=== PATIENT | male | born 1935 | race Native Hawaiian/Other Pacific Islander ===

== ENCOUNTER 2022-03-07 13:19 | Inpatient (IN) ==
[2022-03-07] MEDS ORDERED: ONDANSETRON 4 MG/2 ML VIAL IV PRN (17:45)
[2022-03-07] MEDS ORDERED: ACETAMINOPHEN 325 MG TABLET PO PRN (17:45)
[2022-03-07] MEDS ORDERED: hydrALAZINE 20 MG/1 ML VIAL IV PRN (17:45)
[2022-03-07] MEDS ORDERED: INSULIN REGULAR 10 UNIT, CALCIUM GLUCONATE 1,000 MG in DEXTROSE 10% 250 ML IV ONE (17:57)
[2022-03-07] MEDS ORDERED: SODIUM BICARB INJ 100 MEQ in STERILE WATER INJ 1,000 ML IV SCH (19:00)
[2022-03-07 19:32] LABS: Hepatitis B Core IgM Quant < 0.05 Index; Hepatitis B Surface Ag Quant < 0.10 Index; Hepatitis B Surface Ag Result Non-Reactive (NonReactive); Hepatitis C Virus Ab Quant 0.02 Index; Hepatitis C Virus Ab Result Non-Reactive (NonReactive)
[2022-03-07] MEDS ORDERED: LORazepam 2 MG/1 ML VIAL ONE (21:35)
[2022-03-07] MEDS ORDERED: LORazepam 2 MG/1 ML VIAL IV PRN (21:59)
[2022-03-07] MEDS: SODIUM ZIRCONIUM CYCLOSILICATE 10 GM PACK PO SCH (22:01)
[2022-03-07 22:16] LABS: Arterial Base Excess iSTAT -9 MMOL/L (-2.5-2.5); Arterial Bicarbonate iSTAT 16.5 MMOL/L (20-26); Arterial O2 Saturation iSTAT 94 % (95-100); Arterial PCO2 iSTAT 35 MM HG (35-48); Arterial PO2 iSTAT 79 MM HG (80-95); Arterial Total CO2 iSTAT 18 MMO/L (23-27); Arterial pH iSTAT 7.276 (7.35-7.45)
[2022-03-07 22:25] LABS: Basophils % 0.5 % (0.0-0.8); Eosinophils % 0.2 % (0.00-10.9); Hematocrit 24.6 VOL% (42.0-52.0); Hemoglobin 8.2 GM/DL (14.0-18.0); Immature Granulocytes % 0.5 %; Immature Granulocytes Absolute 0.02 #; Lymphocytes % 24.2 % (21.2-54.2); Mean Corpuscular HGB Conc 33.3 GM/DL (32-36); Mean Corpuscular Volume 96.5 FL (87-102); Mean Platelet Volume 9.2 FL (9.6-12.0); Monocytes # 0.3 10*3/uL (0.11-0.8); Neutrophils % 68.6 % (38.7-73.9); Platelet Count 156 T/CUMM (130-400); Red Blood Count 2.55 MC/CUMM (3.8-5.5); Red Cell Distribution Width 14.5 % (9.3-17.3); White Blood Count 4.3 T/CUMM (4-12)
[2022-03-07 22:35] LABS: INR 1.1; PT Patient Result 12.3 SECS (10.1-12.1)
[2022-03-07 22:44] LABS: Calcium 8.8 MG/DL (8.5-10.1); Potassium 4.8 MMOL/L (3.5-5.1)
[2022-03-07 22:47] LABS: Alanine Aminotransferase 23 U/L (16-61); Albumin 2.4 G/DL (3.4-5.0); Alkaline Phosphatase 69 U/L (45-117); Aspartate Amino Transferase 10 U/L (0-37); Bilirubin,Total < 0.39 MG/DL (0.20-1.00); Blood Urea Nitrogen 134 MG/DL (7-18); Calcium 8.6 MG/DL (8.5-10.1); Carbon Dioxide 17 MMOL/L (21-32); Chloride 113 MMOL/L (98-107); Osmolality,Calculated 325.8 MOS/KG (273-304); Potassium 4.9 MMOL/L (3.5-5.1); Sodium 144 MMOL/L (136-145)
[2022-03-07 22:50] LABS: Glucose 38 MG/DL (74-106)
[2022-03-07] MEDS ORDERED: DEXTROSE 10% 250 ML BAG IV PRN (22:57)
[2022-03-08] MEDS ORDERED: SODIUM BICARB INJ 100 MEQ in DEXTROSE 5% 1,000 ML IV SCH (01:00)
[2022-03-08 01:10] LABS: Basophils % 0.2 % (0.0-0.8); Eosinophils % 0.2 % (0.00-10.9); Hematocrit 23.4 VOL% (42.0-52.0); Hemoglobin 7.9 GM/DL (14.0-18.0); Immature Granulocytes % 0.5 %; Immature Granulocytes Absolute 0.03 #; Lymphocytes # 0.4 10*3/uL (1.4-4.0); Lymphocytes % 6.8 % (21.2-54.2); Mean Corpuscular HGB Conc 33.8 GM/DL (32-36); Mean Corpuscular Volume 96.3 FL (87-102); Mean Platelet Volume 9.2 FL (9.6-12.0); Monocytes # 0.2 10*3/uL (0.11-0.8); Monocytes % 4.1 % (1.7-12.7); Neutrophils % 88.2 % (38.7-73.9); Platelet Count 146 T/CUMM (130-400); Red Blood Count 2.43 MC/CUMM (3.8-5.5); Red Cell Distribution Width 14.4 % (9.3-17.3); White Blood Count 5.6 T/CUMM (4-12)
[2022-03-08] MEDS ORDERED: GLUCAGON 1 MG VIAL IM PRN (01:13)
[2022-03-08 01:31] LABS: % Iron Saturation 91.9 % (18-50); Ferritin 1286.8 ng/mL (26-388)
[2022-03-08 01:37] LABS: Alanine Aminotransferase 21 U/L (16-61); Albumin 2.5 G/DL (3.4-5.0); Alkaline Phosphatase 63 U/L (45-117); Aspartate Amino Transferase 11 U/L (0-37); Bilirubin,Total < 0.39 MG/DL (0.20-1.00); Blood Urea Nitrogen 123 MG/DL (7-18); Calcium 8.6 MG/DL (8.5-10.1); Carbon Dioxide 17 MMOL/L (21-32); Chloride 112 MMOL/L (98-107); Cholesterol 99 MG/DL (50-200); Glucose 90 MG/DL (74-106); HDL Cholesterol 58 MG/DL (40-60); Osmolality,Calculated 319.3 MOS/KG (273-304); Potassium 5.5 MMOL/L (3.5-5.1); Risk Ratio 1.71; Sodium 141 MMOL/L (136-145); Triglycerides 18 MG/DL (2-150); VLDL Cholesterol 3.6 MG/DL
[2022-03-08 02:03] LABS: Folate 11.17 NG/ML (5.38-24.0); Vitamin B12 414 PG/ML (211-911)
[2022-03-08 02:08] LABS: Sedimentation Rate-Westergren 78 MM/HR (0-20)
[2022-03-08] MEDS ORDERED: INSULIN REGULAR 10 UNIT, CALCIUM GLUCONATE 1,000 MG in DEXTROSE 10% 250 ML IV ONE (03:00)
[2022-03-08 05:29] LABS: RBC,Urine 79 /HPF (0-4)
[2022-03-08 05:38] LABS: Bilirubin,Urine Negative (Negative); Blood, Urine Large mg/dL (Negative); Glucose,Urine (UA) Negative (Negative); Ketones,Urine Negative (Negative); Nitrite,Urine Negative (Negative); Protein,Urine 30 mg/dL (Negative); Urine Appearance Clear (Clear); Urine Color Yellow (Yellow); Urine Specific Gravity 1.015 (1.001-1.035); Urine Urobilinogen 0.2 eU/dL (<2.0)
[2022-03-08] MEDS: SODIUM ZIRCONIUM CYCLOSILICATE 10 GM PACK PO SCH ×3 (09:06→20:36)
[2022-03-08] MEDS: SODIUM BICARB INJ 50 MEQ in SODIUM CHLORIDE 0.45% 1,000 ML IV SCH ×2 (09:46→18:43)
[2022-03-08 10:30] LABS: Calcium 9.2 MG/DL (8.5-10.1); Osmolality,Calculated 318.8 MOS/KG (273-304); Potassium 5.1 MMOL/L (3.5-5.1)
[2022-03-08] MEDS: levETIRAcetam 500 MG TABLET PO SCH ×2 (11:41→20:36)
[2022-03-09] MEDS: SODIUM BICARB INJ 50 MEQ in SODIUM CHLORIDE 0.45% 1,000 ML IV SCH ×3 (01:21→17:55)
[2022-03-09 06:00] LABS: Basophils % 0.3 % (0.0-0.8); Eosinophils % 0.4 % (0.00-10.9); Hematocrit 27.7 VOL% (42.0-52.0); Hemoglobin 9.5 GM/DL (14.0-18.0); Immature Granulocytes % 0.1 %; Immature Granulocytes Absolute 0.01 #; Lymphocytes % 15.4 % (21.2-54.2); Mean Corpuscular HGB Conc 34.3 GM/DL (32-36); Mean Corpuscular Volume 95.8 FL (87-102); Mean Platelet Volume 9.7 FL (9.6-12.0); Monocytes # 0.4 10*3/uL (0.11-0.8); Monocytes % 6.3 % (1.7-12.7); Neutrophils % 77.5 % (38.7-73.9); Platelet Count 166 T/CUMM (130-400); Red Blood Count 2.89 MC/CUMM (3.8-5.5); Red Cell Distribution Width 14.6 % (9.3-17.3); White Blood Count 6.7 T/CUMM (4-12)
[2022-03-09 06:27] LABS: Alanine Aminotransferase 25 U/L (16-61); Albumin 2.7 G/DL (3.4-5.0); Alkaline Phosphatase 86 U/L (45-117); Aspartate Amino Transferase 16 U/L (0-37); Bilirubin,Total < 0.39 MG/DL (0.20-1.00); Blood Urea Nitrogen 68 MG/DL (7-18); Calcium 8.9 MG/DL (8.5-10.1); Carbon Dioxide 21 MMOL/L (21-32); Chloride 114 MMOL/L (98-107); Glucose 104 MG/DL (74-106); Osmolality,Calculated 302.1 MOS/KG (273-304); Potassium 4.8 MMOL/L (3.5-5.1); Sodium 142 MMOL/L (136-145); Total Protein 6.9 G/DL (6.4-8.2)
[2022-03-09] MEDS: SODIUM ZIRCONIUM CYCLOSILICATE 10 GM PACK PO SCH ×2 (08:35→14:45)
[2022-03-09] MEDS: levETIRAcetam 500 MG TABLET PO SCH ×2 (09:53→20:48)
[2022-03-09] MEDS: amLODIPine 10 MG TABLET PO SCH (09:53)
[2022-03-09] MEDS ORDERED: LORazepam 2 MG/1 ML VIAL IV ONE (13:18)
[2022-03-09] MEDS ORDERED: ZIPRASIDONE 20 MG/1 ML VIAL IM ONE (14:29)
[2022-03-09] MEDS ORDERED: OLANZapine 10 MG VIAL IM ONE (21:15)
[2022-03-10] MEDS: SODIUM BICARB INJ 50 MEQ in SODIUM CHLORIDE 0.45% 1,000 ML IV SCH ×3 (03:40→22:54)
[2022-03-10 06:00] LABS: Basophils % 0.4 % (0.0-0.8); Eosinophils % 0.4 % (0.00-10.9); Hematocrit 31.4 VOL% (42.0-52.0); Hemoglobin 10.1 GM/DL (14.0-18.0); Immature Granulocytes % 0.4 %; Immature Granulocytes Absolute 0.02 #; Lymphocytes % 18.9 % (21.2-54.2); Mean Corpuscular HGB Conc 32.2 GM/DL (32-36); Mean Corpuscular Volume 99.7 FL (87-102); Mean Platelet Volume 9.6 FL (9.6-12.0); Monocytes # 0.5 10*3/uL (0.11-0.8); Monocytes % 8.5 % (1.7-12.7); Neutrophils % 71.4 % (38.7-73.9); Platelet Count 172 T/CUMM (130-400); Red Blood Count 3.15 MC/CUMM (3.8-5.5); Red Cell Distribution Width 14.6 % (9.3-17.3); White Blood Count 5.4 T/CUMM (4-12)
[2022-03-10] MEDS: LEVOTHYROXINE 25 MCG TABLET PO SCH (06:05)
[2022-03-10 06:16] LABS: Albumin 3.2 G/DL (3.4-5.0); Bilirubin,Total 0.4 MG/DL (0.20-1.00); Calcium 9.1 MG/DL (8.5-10.1); Osmolality,Calculated 302.4 MOS/KG (273-304); Potassium 3.7 MMOL/L (3.5-5.1); Total Protein 7.9 G/DL (6.4-8.2)
[2022-03-10 08:48] LABS: Hemoglobin A1 (Alkaline) 97.7 % (96.5-98.5); Hemoglobin A2 (Alkaline) 2.3 % (1.5-3.5)
[2022-03-10] MEDS: levETIRAcetam 500 MG TABLET PO SCH ×2 (08:56→22:55)
[2022-03-10] MEDS: amLODIPine 10 MG TABLET PO SCH (08:56)
[2022-03-10] MEDS: OLANZapine 5 MG TABLET PO SCH (08:56)
[2022-03-10] MEDS ORDERED: OLANZapine 2.5 MG TABLET PO SCH (09:00)
[2022-03-11 04:36] LABS: Basophils % 0.3 % (0.0-0.8); Eosinophils % 0.6 % (0.00-10.9); Hematocrit 30.2 VOL% (42.0-52.0); Hemoglobin 9.8 GM/DL (14.0-18.0); Immature Granulocytes % 0.3 %; Immature Granulocytes Absolute 0.02 #; Lymphocytes # 0.9 10*3/uL (1.4-4.0); Lymphocytes % 13.5 % (21.2-54.2); Mean Corpuscular HGB Conc 32.5 GM/DL (32-36); Mean Corpuscular Volume 98.7 FL (87-102); Mean Platelet Volume 8.8 FL (9.6-12.0); Monocytes # 0.5 10*3/uL (0.11-0.8); Monocytes % 7.6 % (1.7-12.7); Neutrophils % 77.7 % (38.7-73.9); Platelet Count 148 T/CUMM (130-400); Red Blood Count 3.06 MC/CUMM (3.8-5.5); Red Cell Distribution Width 14.3 % (9.3-17.3); White Blood Count 6.4 T/CUMM (4-12)
[2022-03-11 04:55] LABS: Calcium 9.3 MG/DL (8.5-10.1); Osmolality,Calculated 296.6 MOS/KG (273-304); Potassium 3.8 MMOL/L (3.5-5.1)
[2022-03-11 05:58] LABS: Hematocrit 30.8 VOL% (42.0-52.0); Hemoglobin 10.2 GM/DL (14.0-18.0)
[2022-03-11] MEDS: SODIUM BICARB INJ 50 MEQ in SODIUM CHLORIDE 0.45% 1,000 ML IV SCH ×3 (08:15→15:00)
[2022-03-11] MEDS: amLODIPine 10 MG TABLET PO SCH (08:52)
[2022-03-11] MEDS: LEVOTHYROXINE 25 MCG TABLET PO SCH (08:52)
[2022-03-11] MEDS: OLANZapine 5 MG TABLET PO SCH (08:52)
[2022-03-11] MEDS: levETIRAcetam 500 MG TABLET PO SCH ×2 (08:52→22:15)
[2022-03-11] MEDS: TAMSULOSIN 0.4 MG CAPSULE PO SCH ×2 (09:50→22:15)
[2022-03-12 05:20] LABS: Basophils % 0.5 % (0.0-0.8); Eosinophils # 0.1 10*3/uL (0.0-0.87); Eosinophils % 2.5 % (0.00-10.9); Hematocrit 28.4 VOL% (42.0-52.0); Hemoglobin 9.5 GM/DL (14.0-18.0); Immature Granulocytes % 0.5 %; Immature Granulocytes Absolute 0.02 #; Lymphocytes # 1.2 10*3/uL (1.4-4.0); Lymphocytes % 26.8 % (21.2-54.2); Mean Corpuscular HGB Conc 33.5 GM/DL (32-36); Mean Corpuscular Volume 96.9 FL (87-102); Mean Platelet Volume 9.4 FL (9.6-12.0); Monocytes # 0.4 10*3/uL (0.11-0.8); Monocytes % 9.3 % (1.7-12.7); Neutrophils % 60.4 % (38.7-73.9); Platelet Count 141 T/CUMM (130-400); Red Blood Count 2.93 MC/CUMM (3.8-5.5); Red Cell Distribution Width 14.5 % (9.3-17.3); White Blood Count 4.4 T/CUMM (4-12)
[2022-03-12 05:37] LABS: Osmolality,Calculated 292.6 MOS/KG (273-304); Potassium 3.2 MMOL/L (3.5-5.1)
[2022-03-12] MEDS: SODIUM BICARB INJ 50 MEQ in SODIUM CHLORIDE 0.45% 1,000 ML IV SCH ×2 (07:10→19:40)
[2022-03-12] MEDS: LEVOTHYROXINE 25 MCG TABLET PO SCH (07:32)
[2022-03-12] MEDS: amLODIPine 10 MG TABLET PO SCH (08:10)
[2022-03-12] MEDS: TAMSULOSIN 0.4 MG CAPSULE PO SCH ×2 (08:10→21:32)
[2022-03-12] MEDS: OLANZapine 5 MG TABLET PO SCH (08:10)
[2022-03-12] MEDS: levETIRAcetam 500 MG TABLET PO SCH ×2 (08:10→21:32)
[2022-03-12] MEDS: POTASSIUM CHLORIDE 10 MEQ TABLET PO SCH ×3 (08:48→21:31)
[2022-03-12] MEDS: DUTASTERIDE 0.5 MG CAPSULE PO SCH (10:51)
[2022-03-13 05:14] LABS: Basophils % 0.2 % (0.0-0.8); Eosinophils # 0.1 10*3/uL (0.0-0.87); Eosinophils % 0.9 % (0.00-10.9); Hematocrit 27.2 VOL% (42.0-52.0); Hemoglobin 8.9 GM/DL (14.0-18.0); Immature Granulocytes % 0.3 %; Immature Granulocytes Absolute 0.02 #; Lymphocytes # 0.7 10*3/uL (1.4-4.0); Lymphocytes % 11.1 % (21.2-54.2); Mean Corpuscular HGB Conc 32.7 GM/DL (32-36); Mean Corpuscular Volume 96.8 FL (87-102); Mean Platelet Volume 9.5 FL (9.6-12.0); Monocytes # 0.5 10*3/uL (0.11-0.8); Monocytes % 8.3 % (1.7-12.7); Neutrophils % 79.2 % (38.7-73.9); Platelet Count 135 T/CUMM (130-400); Red Blood Count 2.81 MC/CUMM (3.8-5.5); Red Cell Distribution Width 14.5 % (9.3-17.3); White Blood Count 5.9 T/CUMM (4-12)
[2022-03-13 05:41] LABS: Calcium 8.8 MG/DL (8.5-10.1); Osmolality,Calculated 291.7 MOS/KG (273-304); Potassium 3.9 MMOL/L (3.5-5.1)
[2022-03-13] MEDS: LEVOTHYROXINE 25 MCG TABLET PO SCH (06:39)
[2022-03-13] MEDS: OLANZapine 5 MG TABLET PO SCH (08:43)
[2022-03-13] MEDS: DUTASTERIDE 0.5 MG CAPSULE PO SCH (08:43)
[2022-03-13] MEDS: POTASSIUM CHLORIDE 10 MEQ TABLET PO SCH ×3 (08:43→21:14)
[2022-03-13] MEDS: amLODIPine 10 MG TABLET PO SCH (08:43)
[2022-03-13] MEDS: levETIRAcetam 500 MG TABLET PO SCH ×2 (08:44→21:21)
[2022-03-13] MEDS: TAMSULOSIN 0.4 MG CAPSULE PO SCH ×2 (08:44→21:21)
[2022-03-13] MEDS: SODIUM BICARB INJ 50 MEQ in SODIUM CHLORIDE 0.45% 1,000 ML IV SCH (12:57)
[2022-03-14] MEDS: SODIUM BICARB INJ 50 MEQ in SODIUM CHLORIDE 0.45% 1,000 ML IV SCH ×3 (02:17→13:46)
[2022-03-14] MEDS: LEVOTHYROXINE 25 MCG TABLET PO SCH (06:42)
[2022-03-14] MEDS: TAMSULOSIN 0.4 MG CAPSULE PO SCH (11:08)
[2022-03-14] MEDS: OLANZapine 5 MG TABLET PO SCH (11:08)
[2022-03-14] MEDS: POTASSIUM CHLORIDE 10 MEQ TABLET PO SCH (11:08)
[2022-03-14] MEDS: levETIRAcetam 500 MG TABLET PO SCH (11:10)
[2022-03-14] MEDS: DUTASTERIDE 0.5 MG CAPSULE PO SCH (11:11)
[2022-03-14 12:45] VITALS: BP 139/73
== END 2022-03-14 15:15 | DRG 682 ==
LOC: N.TELES 16:13 → SUATTDRO 16:13
PROVIDERS: ADMIT Internal Medicine; ATTEND Hospitalist